=== PATIENT | female | born 1990 | race African-American/Black ===

== ENCOUNTER 2016-08-27 09:46 | Emergency (ER) | payer MEDICAID, OTHER ==
[~2016-08-27] VITALS: Ht 162.6 cm; Wt 72.0 kg
[2016-08-27 09:48] VITALS: BP 140/67; PULSE 65; RESP 20; TEMP 97.9; O2SAT 100
[2016-08-27 11:26] LABS: BACTERIA, URINE FEW /hpf; BLOOD, URINE LARGE (NEG); GLUCOSE,URINE NEG (NEG); KETONE, URINE NEG (NEG); MUCUS URINE FEW /lpf (OCC); NITRITE,URINE NEG (NEG); PH, URINE 6.5 (5.0-8.5); SQUAMOUS EPITHELIAL CELL URINE 7 /hpf (0-5); URINE COLOR YELLOW (YELLW/STRAW)
[2016-08-27 11:30] LABS: COMMENT (UR) CULTURE INDICATED; CULTURE IF INDICATED CULTURE INDICATED
[2016-08-27] MEDS ORDERED: CIPR250T52 PO (13:27)
--- NOTE | 2016-08-27 13:27 | PD ---
HPI Chief Complaint: Complaint Time Seen by Provider: 10:39 Travel History International Travel<30 days: No Contact w/Intl Traveler<30days: No Traveled to known affect area: No History of Present Illness HPI 25yo F with no PMH presents to the ED with c/o dysuria and urinary frequency today. Denies any fever, n/v, abdominal pain, vaginal discharge or bleeding, chest pain, sob. PFSH Past Medical History Diminished Hearing: No Genitourinary: Yes (blood in urine this visit) ?: Not : 5 Para: 5 Miscarriage: 0 : 0 Ectopic : No Ovarian Cysts: No Tubal Ligation: Yes Past Surgical History Abdominal Surgery: Yes (BLADDER REPAIR AGE 2) Section: Yes (x5) Genitourinary Surgery: Yes (BLADDER REPAIR IN CHILDHOOD) Gynecologic Surgery: Yes () Hysterectomy: No Social History Alcohol Use: No Tobacco Use: No (QUIT, PT USED TO SMOKE 1/2 PPD) Substance Use: No (HX OF MARIJUANA USE) Allergies-Medications (Allergen,Severity, Reaction): Coded Allergies: No Known Allergies (Verified , 08/27/16) Reported Meds & Prescriptions Reported Meds & Active Scripts Active No Active Prescriptions or Reported Medications Review of Systems Except as stated in HPI: all other systems reviewed are Neg Physical Exam Narrative GENERAL: 25yo F not in distress. SKIN: Focused skin assessment warm/dry. HEAD: Atraumatic. Normocephalic. CARDIOVASCULAR: Regular rate and rhythm. No murmur appreciated. RESPIRATORY: No accessory muscle use. Clear to auscultation. Breath sounds equal bilaterally. GASTROINTESTINAL: Abdomen soft, non-tender, nondistended. No rebound tenderness or guarding. BACK: No CVA tenderness bilaterally. MUSCULOSKELETAL: No obvious deformities. No clubbing. No cyanosis. No edema. NEUROLOGICAL: Awake and alert. No obvious cranial nerve deficits. Motor grossly within normal limits. Normal speech. PSYCHIATRIC: Appropriate mood and affect; insight and judgment normal. Data Data Last Documented VS Vital Signs Date Time Temp Pulse Resp B/P Pulse Ox O2 Delivery O2 Flow Rate FiO2 08/27/16 09:48 97.9 65 20 140/67 100 Room Air Orders Urinalysis - C+S If Indicated (08/27/16 10:42) Ed Urine Pregnancytest Poc (08/27/16 10:42) Urine Culture (08/27/16 10:40) Labs Laboratory Tests Test 08/27/16 10:40 Urine Color YELLOW Urine Turbidity HAZY Urine pH 6.5 Urine Specific [place] 1.022 Urine Protein 300 mg/dL Urine Glucose (UA) NEG mg/dL Urine Ketones NEG mg/dL Urine Occult Blood LARGE Urine Nitrite NEG Urine Bilirubin NEG Urine Urobilinogen LESS THAN 2.0 MG/DL Urine Leukocyte Esterase LARGE Urine RBC /hpf Urine WBC /hpf Urine Squamous Epithelial 7 /hpf Cells Urine Bacteria FEW /hpf Urine Mucus FEW /lpf Microscopic Urinalysis Comment CULTURE INDICATED MDM Medical Decision Making Medical Screen Exam Complete: Yes Emergency Medical Condition: Yes Differential Diagnosis UTI vs. Narrative Course 25yo F with urinary complaints. Pt is well appearing and has no nausea, fever or abdominal pain. VS stable. UA showed large blood. Large leukocyte. Urine negative. Will prescribe cipro for UTI. Diagnosis Primary Impression: UTI (urinary tract infection) Qualified Code: N39.0 - Urinary tract infection with hematuria, site unspecified Patient Instructions: General Instructions Departure Forms: Tests/Procedures Additional Instructions: Please follow up with your PMD in 3-7 days. Return to the ED if symptoms worsen. Med/Other Pt SpecificInfo: Prescription(s) given Scripts Ciprofloxacin (Cipro)250 Mg [id number] Mg PO BID 3 Days Ref 0 Prov:Blanca Soriano DO 08/27/16 Disposition: 01 DISCHARGE HOME Condition: Stable Blanca Soriano DO Aug 27, 2016 13:27
== END 2016-08-27 14:06 | disposition home or self-care (01) ==
LOC: NEPE 09:46
DX: N39.0 Urinary tract infection, site not specified (principal); B95.7 Other staphylococcus as the cause of diseases classified elsewhere
CPT/HCPCS: 81001; 84703; 87077; 87086; 87186; 99283

== ENCOUNTER 2016-12-02 09:09 | Emergency (ER) | payer MEDICAID ==
[~2016-12-02 09:09] MED LIST: CIPR250T52 PO
[2016-12-02 09:10] VITALS: BP 139/80; PULSE 81; RESP 14; TEMP 98.4; O2SAT 98
--- NOTE | 2016-12-02 09:23 | PD ---
HPI Chief Complaint: Complaint Time Seen by Provider: 09:22 Travel History International Travel<30 days: No Contact w/Intl Traveler<30days: No Traveled to known affect area: No History of Present Illness HPI 25-year-old female presents to the emergency Department with complaint of urinary frequency, hesitancy and left lower back pain for the past few days. Denies dysuria, hematuria, abdominal pain; vaginal discharge, odor, itch, lesions. Denies fever, vomiting. Reports bladder pressure, but not pain. Has not taken any medications or drainage in her symptoms. Currently on menses. No known allergies. Has no medical complaints. No other modifying factors or associated signs and symptoms. PFSH Past Medical History Diminished Hearing: No Genitourinary: Yes (blood in urine this visit) ?: Not LMP: 12/01/16 : 5 Para: 5 Miscarriage: 0 : 0 Ectopic : No Ovarian Cysts: No Tubal Ligation: Yes Past Surgical History Abdominal Surgery: Yes (BLADDER REPAIR AGE 2) Section: Yes (x5) Genitourinary Surgery: Yes (BLADDER REPAIR IN CHILDHOOD) Gynecologic Surgery: Yes () Hysterectomy: No Social History Alcohol Use: No Tobacco Use: No (QUIT, PT USED TO SMOKE 1/2 PPD) Substance Use: No (HX OF MARIJUANA USE) Allergies-Medications (Allergen,Severity, Reaction): Coded Allergies: No Known Allergies (Verified , 12/02/16) Reported Meds & Prescriptions Reported Meds & Active Scripts Active Keflex (Cephalexin) 500 Mg Cap 500 Mg PO Q12H 5 Days Review of Systems Except as stated in HPI: all other systems reviewed are Neg Physical Exam Narrative GENERAL: Well-nourished, well-developed female patient, in no acute distress; SKIN: Warm and dry. No rash. HEAD: Atraumatic. Normocephalic. EYES: Pupils equal and round. No scleral icterus. No injection or drainage. ENT: Mucosa pink and moist. NECK: Trachea midline. CARDIOVASCULAR: Regular rate and rhythm. No murmur appreciated. RESPIRATORY: No accessory muscle use. Clear to auscultation. Breath sounds equal bilaterally. GASTROINTESTINAL: Abdomen soft, non-tender, nondistended. Hepatic and splenic margins not palpable. Bowel sounds are active 4 quadrants. Bladder tender on palpation and nondistended. MUSCULOSKELETAL: No obvious deformities. No clubbing. No cyanosis. No edema. BACK: Left CVA tenderness NEUROLOGICAL: Awake and alert. Oriented 3. No obvious cranial nerve deficits. Motor grossly within normal limits. Normal speech. Moves all extremities. 5/5 strength to all extremities. PSYCHIATRIC: Appropriate mood and affect; insight and judgment normal. Data Data Last Documented VS Vital Signs Date Time Temp Pulse Resp B/P Pulse Ox O2 Delivery O2 Flow Rate FiO2 12/02/16 09:10 98.4 81 14 139/80 98 Orders Urinalysis - C+S If Indicated (12/02/16 09:21) Ibuprofen (Motrin) (12/02/16 09:45) Labs Laboratory Tests Test 12/02/16 09:25 Urine Color LIGHT-YELLOW Urine Turbidity CLEAR Urine pH 6.0 Urine Specific [place] 1.015 Urine Protein NEG mg/dL Urine Glucose (UA) NEG mg/dL Urine Ketones NEG mg/dL Urine Occult Blood MOD Urine Nitrite NEG Urine Bilirubin NEG Urine Urobilinogen LESS THAN 2.0 MG/DL Urine Leukocyte Esterase NEG Urine RBC 3 /hpf Urine WBC 1 /hpf Urine Squamous Epithelial 1 /hpf Cells Urine Bacteria RARE /hpf Urine Mucus FEW /lpf Microscopic Urinalysis Comment CULT NOT INDICATED MDM Medical Decision Making Medical Screen Exam Complete: Yes Emergency Medical Condition: Yes Medical Record Reviewed: Yes Differential Diagnosis Cystitis, UTI, pyelonephritis Narrative Course 25-year-old female with urinary frequency and hesitancy. Left CVA tenderness. Currently on menses. Urinalysis ordered. 1024: Urinalysis with no signs of infection. I will treat the patient with Keflex for cystitis secondary to reported symptoms. Keflex prescribed for home. Instructed patient to follow up with primary care provider. Patient verbalizes understanding and agreement with treatment plan. Patient is medically cleared and stable for discharge. Discussed reasons to return to the emergency department. Patient agrees with treatment plan. The patients vital signs are stable and the patient is stable for outpatient follow-up and treatment. Patient discharged home, stable and in no acute distress. Diagnosis Primary Impression: Cystitis Patient Instructions: General Instructions, Interstitial Cystitis (ED) Additional Instructions: Take antibiotics as prescribed and complete full course Take Pyridium for bladder spasms: Pyridium will turn your urine bright orange Drink plenty of fluids Maintain good personal hygiene Follow-up with primary care provider Return to the emergency department immediately with worsening of symptoms Med/Other Pt SpecificInfo: Prescription(s) given Scripts Cephalexin (Keflex)500 Mg [id number] Mg PO Q12H 5 Days Ref 0 Prov:Diane Albarran 12/02/16 Disposition: 01 DISCHARGE HOME Condition: Stable Diane Albarran Dec 02, 2016 09:23
[2016-12-02] MEDS ORDERED: IBUPROFEN 800 MG TAB PO ONE (09:45)
[2016-12-02 10:08] LABS: BACTERIA, URINE RARE /hpf; BLOOD, URINE MOD (NEG); COMMENT (UR) CULT NOT INDICATED; CULTURE IF INDICATED CULT NOT INDICATED; GLUCOSE,URINE NEG (NEG); KETONE, URINE NEG (NEG); MUCUS URINE FEW /lpf (OCC); NITRITE,URINE NEG (NEG); SQUAMOUS EPITHELIAL CELL URINE 1 /hpf (0-5); URINE COLOR LIGHT-YELLOW (YELLW/STRAW)
[2016-12-02] MEDS ORDERED: CEPH-460 PO (10:22)
== END 2016-12-02 10:28 | disposition home or self-care (01) ==
LOC: NEPD 09:09
DX: N30.90 Cystitis, unspecified without hematuria (principal); Z87.891 Personal history of nicotine dependence
CPT/HCPCS: 81001; 99283

== ENCOUNTER 2017-06-18 13:39 | Emergency (ER) | payer MEDICAID ==
[~2017-06-18] VITALS: Ht 162.6 cm; Wt 72.7 kg
[~2017-06-18 13:39] MED LIST changes: +CEPH-460 PO; -CIPR250T52 PO
[2017-06-18 13:42] VITALS: BP 128/67; PULSE 83; RESP 17; TEMP 98; O2SAT 99
[2017-06-18] MEDS ORDERED: ACETAMINOPHEN 500 MG CPLT PO ONE (14:15)
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
--- NOTE | 2017-06-18 15:02 | RADRPT ---
EXAM DATE/TIME: 06/18/2017 14:46 [facility] COMPARISON: No previous studies available for comparison. INDICATIONS : Fall. Right lateral knee pain. MEDICAL HISTORY : None. SURGICAL HISTORY : None. ENCOUNTER: Initial ACUITY: 2 days PAIN SCORE: 6/10 LOCATION: Right lateral knee FINDINGS: Four view examination of the right knee demonstrates no evidence of fracture or dislocation. Bony mi neralization is normal. The articular surfaces are intact. The suprapatellar soft tissues have a no rmal configuration. CONCLUSION: 1. Negative examination Teofilo Blanton MD on June 18, 2017 at 14:59 Board Certified Radiologist. This report was verified electronically.
[2017-06-18] MEDS ORDERED: NAPR500 PO (15:09)
== END 2017-06-18 15:30 | disposition home or self-care (01) ==
LOC: NEPK 13:39
DX: S83.91XA Sprain of unspecified site of right knee, initial encounter (principal); V28.3XXA Person boarding or alighting a motorcycle injured in noncollision transport accident, initial encounter; Z87.891 Personal history of nicotine dependence
CPT/HCPCS: 73564; 99283; L1830

== ENCOUNTER 2017-11-13 21:45 | Emergency (ER) | payer MEDICAID ==
[~2017-11-13] VITALS: Ht 162.6 cm; Wt 70.5 kg
[~2017-11-13 21:45] MED LIST changes: -CEPH-460 PO; +NAPR500 PO
[2017-11-13 22:06] VITALS: BP 116/70; PULSE 54; RESP 16; TEMP 98.8; O2SAT 100
[2017-11-13] MEDS ORDERED: CORTI10A LEFT EAR (23:05)
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
== END 2017-11-13 23:33 | disposition home or self-care (01) ==
LOC: NEPD 21:45
DX: H60.92 Unspecified otitis externa, left ear (principal); H61.22 Impacted cerumen, left ear; Z87.891 Personal history of nicotine dependence
CPT/HCPCS: 99283